=== PATIENT | male | born 1965 | race Caucasian/White ===

== ENCOUNTER 2018-03-11 14:38 | Emergency (ER) | payer OTHER ==
[~2018-03-11] VITALS: Ht 653.8 cm; Wt 70.0 kg
[2018-03-11 15:04] VITALS: BP 124/78
[2018-03-11] MEDS ORDERED: naproxen 500mg tablet PO ONE (15:30)
[2018-03-11] MEDS ORDERED: NAPR-56 PO (15:31)
== END 2018-03-11 16:22 | disposition home or self-care (01) ==
LOC: ER 14:39
DX: S62.616A Displaced fracture of proximal phalanx of right little finger, initial encounter for closed fracture (principal); W01.0XXA Fall on same level from slipping, tripping and stumbling without subsequent striking against object, initial encounter; Y93.89 Activity, other specified; Y92.89 Other specified places as the place of occurrence of the external cause; Y99.8 Other external cause status
CPT/HCPCS: 26742; 73140; 99284